=== PATIENT | male | born 1930 | race Caucasian/White ===

== ENCOUNTER 2017-03-04 09:13 | Emergency (ER) | payer OTHER ==
[2017-03-04 09:25] VITALS: BP 144/67; BMI 30.4
[2017-03-04] MEDS ORDERED: HYDROGEN PEROXIDE 3% ONE (09:29)
[2017-03-04] MEDS ORDERED: BENZOIN COMPOUND TINCTURE ONE (09:29)
--- NOTE | 2017-03-04 09:51 | DR.GENAD ---
HPI - PCP Primary Care Physician: PRERNA BARRAZA - HPI Comment HPI Comment: DENIES DEEP ELBOW PAIN. NO OTHER COMPLAINT. TETANUS 4 YEARS AGO AFTER HAND LACERATION. - Complaint/Symptoms Chief Complaint Doctors Comments: SKIN SKIN ON ELBOW DUE TO A FALL THIS AM. Chief Complaint:: PT C/O TRYING TO CATCH MY SON WHEN HE FELL AND I ENDED UP FALLING AND HE HAS A SKIN TEAR TO HIS LEFT ELBOW AREA SKIN ,, - Nurses notes reviewed Nurses Notes Review: Yes - Source History Provided: Patient - Mode of Arrival Mode of Arrival: Ambulatory - Timing Onset of Chief Complaint: 03/04/17 Came on: Suddenly - Duration Duration: Constant Duration: Days - Severity Severity: Moderate PMH - PMH Past Medical History: No Past Surgical History: Yes Surgical History: Ortho Surgery Past Surgical History Comment: BACK SURGERY . , DISC REMOVED AND HERNIA REPAIR . - Family History History of Family Medical Conditions: Yes Family Medical History: Diabetes Mellitus - Social History Does patient currently use any type of tobacco product: No Have you used tobacco products in the last 12 months: No Type of Tobacco Use: None Does any household member use tobacco: No Alcohol Use: None Do you use any recreational Drugs:: No Lives With: Family Lives Where: Home - infectious screening In the last 2 months have you had wt loss of >10#?: NO Have you had fever, night sweats or hemotysis?: No Have you traveled outside the country in the last 6 months?: No Isolation: Standard ROS - Review of Systems Constitutional: No Symptoms Reported Eyes: No Symptoms Reported ENTM: No Symptoms Reported Respiratoy: No Symptoms Reported Cardiovascular: No Symptoms Reported Gastrointestinal/Abdominal: No Symptoms Reported Genitourinary: No Symptoms Reported Neurological: No Symptoms Reported Musculoskeletal: Left, Elbow Integumentary: Change in Color, Wound (SKIN TEAR BACK LEFT ELBOW.) PE - Vital Signs Vitals: Temperature 96.1 F Pulse Rate 48 Respiratory Rate 20 Blood Pressure 144/67 O2 Sat by Pulse Oximetry 95 - General Limitations: No Limitations General Appearance: Alert - Head Head Exam: Normal Inspection - Eyes Eye exam: Normal Appearance - ENT ENT Exam: Normal External Ear Exam External Ear Exam: Normal External Inspection TM/Canal Exam: Left Erythema Nose Exam: Normal Nose Exam Mouth Exam: Normal Inspection Throat Exam: Normal Inspection - Neck Neck Exam: Trachea Midline - Chest Chest Inspection: Normal Inspection - Respiratory Respiratory Exam: Normal Lung Sounds Bilat Respiratory Exam: Bilateral Clear to Auscultation - Cardiovascular Cardiovascular Exam: Regular Rate, Normal Rhythm, Normal Heart Sounds - Abdominal Exam Abdominal Exam: Normal Bowel Sounds, Soft. negative: Tenderness - Extremities Extremities Exam: Normal Inspection - Back Back Exam: Normal Inspection - Neurologic Neurological Exam: Alert, Oriented X3 - Psychiatric Psychiatric Exam: Normal Affect, Normal Mood - Skin Skin Exam: Erythema, Other (SKIN TEAR LEFT ELBOW.) MDM - Differential Diagnosis Differential Diagnosis: SKIN TEAR LEFT ELBOW. CONTUSION LEFT ELBOW. Course - Treatment Treatment: SEE ORDERS. DRESSING APPLIED BY NURSE IN ED. - Education/Counseling Education/Counseling: Patient, Education Educated On: Diagnosis - Diagnosis Discharge Problem: Skin tear Contusion of left elbow Qualifiers: Encounter type: initial encounter Qualified Code(s): S50.02XA - Contusion of left elbow, initial encounter - Discharge Plan Disposition: 01 HOME, SELF-CARE Condition: Stable - Follow ups/Referrals Follow ups/Referrals: Fred Garcia [Primary Care Provider] - 3 days - Instructions Instructions: [facility], Adult, [id number] Additional Instructions: SKIN TEAR LEFT ELBOW. CONTUSION LEFT ELBOW. THESE ARE YOU DIAGNOSIS. RETURN TO ED IF WORSE.
== END 2017-03-04 10:02 | disposition home or self-care (01) ==
LOC: ER 09:32
PROC: 0XQCXZZ Repair Left Elbow Region, External Approach (ICD-10-PCS; principal; 2017-03-04)
DX: S51.012A Laceration without foreign body of left elbow, initial encounter (principal); S50.02XA Contusion of left elbow, initial encounter; W19.XXXA Unspecified fall, initial encounter; Y92.9 Unspecified place or not applicable
CPT/HCPCS: 12001; 99282

== ENCOUNTER 2017-12-09 09:39 | Observation (INO) ==
[2017-12-09 11:01] VITALS: BMI 29.0
[2017-12-09 11:03] LABS: BASOPHILS % (AUTO) 0.5 % (0.2-1.0); EOSINOPHILS # (AUTO) 0.2 x10^3/uL (0.0-0.2); EOSINOPHILS % (AUTO) 2.9 % (0.9-2.9); HEMATOCRIT 47.3 % (42.0-54.0); LYMPHOCYTES # (AUTO) 2.6 X10^3/uL (1.3-2.9); LYMPHOCYTES % (AUTO) 33.7 % (21.0-51.0); MEAN CORPUSCULAR HEMOGLOBIN 33.3 pg (27.0-34.0); MEAN CORPUSCULAR HGB CONC 33.7 g/dL (33.0-35.0); MEAN CORPUSCULAR VOLUME 98.8 fL (80.0-100.0); MEAN PLATELET VOLUME 7.8 fL (7.4-11.0); MONOCYTES # (AUTO) 0.8 x10^3/uL (0.3-0.8); MONOCYTES % (AUTO) 10.5 % (0.0-13.0); NEUTROPHILS # (AUTO) 4.1 x10^3/uL (2.2-4.8); NEUTROPHILS % (AUTO) 52.4 % (42.0-75.0); PLATELET COUNT 194 X10^3/uL (150.0-450.0); RED BLOOD COUNT 4.79 X10^6/uL (4.7-6.0); RED CELL DISTRIBUTION WIDTH 12.6 % (11.6-16.5); WHITE BLOOD COUNT 7.8 X10^3/uL (3.6-10.0)
[2017-12-09 11:18] LABS: BLOOD UREA NITROGEN 12 mg/dL (7-18); CALCIUM 8.8 mg/dL (8.5-10.1); CHLORIDE 106 mmol/L (98-107); CREATININE 1.11 mg/dL (0.70-1.30); SODIUM 142 mmol/L (136-145); TROPONIN I < 0.02 ng/mL (0-1.5); eGFR NON BLACK RACES > 60 (>60)
[2017-12-09 11:22] LABS: ALANINE AMINOTRANSFERASE 21 Units/L (12-78); ALKALINE PHOSPHATASE 123 Units/L (46-116); ASPARTATE AMINO TRANSFERASE 22 Units/L (15-37); CKMB % 2.8 % (<4); COR CA(FOR HYPOALB) 9.6 mg/dL (8.5-10.1); CREATINE KINASE 36 Units/L (39-308); CREATINE KINASE MB < 1.0 ng/mL (0-4.0); TOTAL PROTEIN 6.4 g/dL (6.4-8.2)
--- NOTE | 2017-12-09 11:32 | DR.UPDATE ---
H&P Update History and Physical Update: History and Physical reviewed and patient examined. Changes noted: Yes with the following: RETURNED TO THE OFFICE TODAY TO HAVE A NUCLEAR STRESS TEST AND ECHO. UPON WALKING INTO THE OFFICE, HE WAS NOTED WITH COMPLAINTS OF CHEST PAIN, SHORTNESS OF BREATH, AND DIZZINESS. CHEST PAIN IS DESCRIBED SQUEEZING AND RADIATES TO THE SHOULDERS AND LEFT ARM. HE WAS NOTED TO BE DIAPHORETIC AND PALE IN COLOR. HIS HEART RATE WAS NOTED TO BE IN THE 140s. HE REPORTS THAT SYMPTOMS STARTED APPROXIMATELY 20 MINUTES AGO. PATIENT WAS ADMITTED TO THE HOSPITAL FOR FURTHER EVALUATION AND TREATMENT. HE WAS PLACED ON THE CHEST PAIN PROTOCOL. WE WILL OBTAIN SERIAL CARDIAC ENZYMES, EKGS, WELL LABS AND AN ECHOCARDIOGRAM ON ADMISSION.
[2017-12-09] MEDS: LOVENOX INJ 30 MG SYR SC SCH (13:28)
[2017-12-09 14:31] LABS: CREATINE KINASE 49 Units/L (39-308); CREATINE KINASE MB < 1.0 ng/mL (0-4.0); TROPONIN I < 0.02 ng/mL (0-1.5)
[2017-12-09 18:52] LABS: CKMB % 3.2 % (<4); CREATINE KINASE 31 Units/L (39-308); CREATINE KINASE MB < 1.0 ng/mL (0-4.0); TROPONIN I < 0.02 ng/mL (0-1.5)
[2017-12-10] MEDS: MORPHINE SULFATE INJ 2 MG INJ IVP PRN ×3 (06:45→23:27)
[2017-12-10 06:52] LABS: ALANINE AMINOTRANSFERASE 19 Units/L (12-78); ALBUMIN 2.8 g/dL (3.4-5.0); ALKALINE PHOSPHATASE 122 Units/L (46-116); ASPARTATE AMINO TRANSFERASE 26 Units/L (15-37); BLOOD UREA NITROGEN 14 mg/dL (7-18); CALCIUM 8.5 mg/dL (8.5-10.1); CARBON DIOXIDE 27.2 mmol/L (21-32); CHLORIDE 106 mmol/L (98-107); CHOL/HDL RATIO 3.1 (0.0-5.0); CHOLESTEROL 151 mg/dL (0-200); COR CA(FOR HYPOALB) 9.5 mg/dL (8.5-10.1); CREATININE 0.93 mg/dL (0.70-1.30); HDL CHOLESTEROL 48 mg/dL (40-60); SODIUM 140 mmol/L (136-145); TOTAL PROTEIN 6.5 g/dL (6.4-8.2); TRIGLYCERIDES 84 mg/dL (0-150); eGFR NON BLACK RACES > 60 (>60)
[2017-12-10 06:59] LABS: BASOPHILS % (AUTO) 0.6 % (0.2-1.0); EOSINOPHILS # (AUTO) 0.2 x10^3/uL (0.0-0.2); EOSINOPHILS % (AUTO) 2.9 % (0.9-2.9); HEMATOCRIT 43.2 % (42.0-54.0); HEMOGLOBIN 14.8 g/dL (13.5-18.0); LYMPHOCYTES # (AUTO) 2.7 X10^3/uL (1.3-2.9); LYMPHOCYTES % (AUTO) 35.1 % (21.0-51.0); MEAN CORPUSCULAR HEMOGLOBIN 33.7 pg (27.0-34.0); MEAN CORPUSCULAR HGB CONC 34.3 g/dL (33.0-35.0); MEAN CORPUSCULAR VOLUME 98.1 fL (80.0-100.0); MEAN PLATELET VOLUME 7.5 fL (7.4-11.0); MONOCYTES # (AUTO) 0.8 x10^3/uL (0.3-0.8); MONOCYTES % (AUTO) 10.4 % (0.0-13.0); NEUTROPHILS # (AUTO) 3.9 x10^3/uL (2.2-4.8); PLATELET COUNT 168 X10^3/uL (150.0-450.0); RED BLOOD COUNT 4.41 X10^6/uL (4.7-6.0); RED CELL DISTRIBUTION WIDTH 12.8 % (11.6-16.5); WHITE BLOOD COUNT 7.6 X10^3/uL (3.6-10.0)
[2017-12-10] MEDS: LOVENOX INJ 30 MG SYR SC SCH (08:30)
[2017-12-10] MEDS: ASPIRIN PO SCH (08:30)
[2017-12-10] MEDS: NORVASC TAB 5 MG PO SCH (13:17)
[2017-12-11] MEDS: MORPHINE SULFATE INJ 2 MG INJ IVP PRN (05:46)
[2017-12-11 06:11] LABS: BASOPHILS % (AUTO) 0.5 % (0.2-1.0); EOSINOPHILS # (AUTO) 0.2 x10^3/uL (0.0-0.2); EOSINOPHILS % (AUTO) 2.6 % (0.9-2.9); HEMATOCRIT 45.9 % (42.0-54.0); HEMOGLOBIN 15.7 g/dL (13.5-18.0); LYMPHOCYTES # (AUTO) 2.4 X10^3/uL (1.3-2.9); LYMPHOCYTES % (AUTO) 32.4 % (21.0-51.0); MEAN CORPUSCULAR HEMOGLOBIN 33.7 pg (27.0-34.0); MEAN CORPUSCULAR HGB CONC 34.2 g/dL (33.0-35.0); MEAN CORPUSCULAR VOLUME 98.6 fL (80.0-100.0); MEAN PLATELET VOLUME 7.9 fL (7.4-11.0); MONOCYTES # (AUTO) 0.9 x10^3/uL (0.3-0.8); MONOCYTES % (AUTO) 11.7 % (0.0-13.0); NEUTROPHILS # (AUTO) 3.9 x10^3/uL (2.2-4.8); NEUTROPHILS % (AUTO) 52.8 % (42.0-75.0); PLATELET COUNT 178 X10^3/uL (150.0-450.0); RED BLOOD COUNT 4.66 X10^6/uL (4.7-6.0); RED CELL DISTRIBUTION WIDTH 12.6 % (11.6-16.5); WHITE BLOOD COUNT 7.3 X10^3/uL (3.6-10.0)
[2017-12-11 06:20] LABS: ALANINE AMINOTRANSFERASE 20 Units/L (12-78); ALBUMIN 2.7 g/dL (3.4-5.0); ALKALINE PHOSPHATASE 116 Units/L (46-116); ASPARTATE AMINO TRANSFERASE 21 Units/L (15-37); BLOOD UREA NITROGEN 10 mg/dL (7-18); CALCIUM 8.6 mg/dL (8.5-10.1); CHLORIDE 107 mmol/L (98-107); COR CA(FOR HYPOALB) 9.6 mg/dL (8.5-10.1); COR NA(FOR HYPERGLY) 143 mmol/L (136-145); CREATININE 0.86 mg/dL (0.70-1.30); SODIUM 143 mmol/L (136-145); TOTAL PROTEIN 6.1 g/dL (6.4-8.2); eGFR NON BLACK RACES > 60 (>60)
--- NOTE | 2017-12-11 07:37 | RAD ---
HISTORY: Chest pain, dizziness Study: Chest AP portable Comparison: 12/10/2017 Findings: The heart is within normal limits in size. The alfred are normal. The lung wilkins are clear. There is blunting of the left costophrenic angle suggestive of a small left pleural effusion. Bony thorax is unremarkable. IMPRESSION: No acute infiltrates Suspect small left pleural effusion Reported By:
[2017-12-11] MEDS ORDERED: COLACE CAP 100 MG PO SCH (09:00)
[2017-12-11] MEDS: LOVENOX INJ 30 MG SYR SC SCH (09:00)
[2017-12-11] MEDS: ASPIRIN PO SCH (09:00)
[2017-12-11] MEDS: NORVASC TAB 5 MG PO SCH (09:00)
[2017-12-11 10:34] VITALS: BP 133/62
[2017-12-11] MEDS ORDERED: MILK OF MAGNESIA PO SCH (21:00)
[2017-12-12] MEDS ORDERED: COLACE CAP 100 MG PO SCH (09:00)
--- NOTE | 2018-01-11 21:09 | PCM.PROG ---
Progress Note - Progress Note for Day of Date of Exam: 12/10/17 - Subjective Subjective: WAS ADMITTED FOR CHEST PAIN RULE OUT ACUTE DC. TODAY, HE IS ALERT AND ORIENTED, LYING IN BED ON MORNING ROUNDS. HE CONTINUES WITH SHORTNESS OF BREATH. HE REPORTS THAT CHEST PAIN COMES AND GOES. ON EXAMINATION, HEART IS REGULAR IN RATE AND RHYTHM. BILATERAL LUNGS ARE NOTED WITH DIMINISHED LUNG SOUNDS THROUGHOUT. ABDOMEN IS ROUND, SOFT, AND NON-TENDER WITH NORMAL BOWEL SOUNDS NOTED IN ALL QUADRANTS. HIS VITALS THIS MORNING ARE 97.9-51-25-96%NC-166/77. LABS WERE OBTAINED. ABNORMAL LAB VALUES INCLUDE THE FOLLOWING: RBC 4.41, ALK PHOS 122, ALBUMIN 2.8. A CHEST XRAY WAS OBTAINED TODAY AND REVEALED: MINIMAL BIBASILAR SUBSEGMENTAL ATELECTASIS, STABLE. TODAY, WE WILL START NORVASC 5MG PO DAILY. OTHERWISE, WE WILL CONTINUE WITH TELEMETRY, SUPPLEMENTAL OXYGEN, AND CONTINUE TO MONITOR. WE WILL FOLLOW UP WITH AM LABS AND CONTINUE TO MONITOR. PATIENT. - Past Medical Family Social History Past Med/Fam/Surg Hx: No changes since H&P Allergies: Allergies No Known Drug Allergies Allergy (Verified 12/09/17 10:05) - Review of Systems ROS: No change since H&P - Vital Signs and I&O's Vital Signs: Temperature 97.5 F Pulse Rate [Right Brachial] 54 Respiratory Rate 18 Blood Pressure [Right Arm] 133/62 Blood Pressure 144/67 O2 Sat by Pulse Oximetry 96 - Physical Exam Oriented: Normal Eyes: Normal Ear: Normal Nose: Normal Throat: Normal Respiratory: Generalized, Diminished Cardiovascular: Normal. negative: S3, S4, Murmur, Edema : Normal Auscultation: Bowel Sounds: Normal Palpation: Normal Tenderness: Normal Skin: Normal Musculoskeletal: Normal Psychiatric: Normal Mood Description: Calm Affect: Normal Speech Pattern: Clear, Appropriate - Laboratory and Diagnostics Result Diagrams: 12/11/17 05:24 12/11/17 05:24 Labs: Laboratory WBC 7.3 X10^3/uL (3.6-10.0) 12/11/17 05:24 RBC 4.66 X10^6/uL (4.7-6.0) L 12/11/17 05:24 Hgb 15.7 g/dL (13.5-18.0) 12/11/17 05:24 Hct 45.9 % (42.0-54.0) 12/11/17 05:24 MCV 98.6 fL (80.0-100.0) 12/11/17 05:24 MCH 33.7 pg (27.0-34.0) 12/11/17 05:24 MCHC 34.2 g/dL (33.0-35.0) 12/11/17 05:24 RDW 12.6 % (11.6-16.5) 12/11/17 05:24 Plt Count 178 X10^3/uL (150.0-450.0) 12/11/17 05:24 MPV 7.9 fL (7.4-11.0) 12/11/17 05:24 Neut % (Auto) 52.8 % (42.0-75.0) 12/11/17 05:24 Lymph % (Auto) 32.4 % (21.0-51.0) 12/11/17 05:24 Clay % (Auto) 11.7 % (0.0-13.0) 12/11/17 05:24 Eos % (Auto) 2.6 % (0.9-2.9) 12/11/17 05:24 Baso % (Auto) 0.5 % (0.2-1.0) 12/11/17 05:24 Neut # (Auto) 3.9 x10^3/uL (2.2-4.8) 12/11/17 05:24 Lymph # (Auto) 2.4 X10^3/uL (1.3-2.9) 12/11/17 05:24 Clay # (Auto) 0.9 x10^3/uL (0.3-0.8) H 12/11/17 05:24 Eos # (Auto) 0.2 x10^3/uL (0.0-0.2) 12/11/17 05:24 Baso # (Auto) 0.0 X10^3/uL (0.0-0.1) 12/11/17 05:24 Absolute Nucleated RBC 0.1 /100WBC 12/11/17 05:24 INR Target Range - 12/09/17 10:25 INR 1.06 (0.8-1.3) 12/09/17 10:25 APTT 28.2 SECONDS (22.9-36.5) 12/09/17 10:25 PTT Comment - 12/09/17 10:25 Sodium 143 mmol/L (136-145) 12/11/17 05:24 Corrected Sodium 143 mmol/L (136-145) 12/11/17 05:24 Potassium 4.1 mmol/L (3.5-5.1) 12/11/17 05:24 Chloride 107 mmol/L (98-107) 12/11/17 05:24 Carbon Dioxide 28.0 mmol/L (21-32) 12/11/17 05:24 BUN 10 mg/dL (7-18) 12/11/17 05:24 Creatinine 0.86 mg/dL (0.70-1.30) 12/11/17 05:24 Est GFR (MDRD) Af Amer > 60 (>60) 12/11/17 05:24 Est GFR (MDRD) Non-Af > 60 (>60) 12/11/17 05:24 Glucose 111 mg/dL (65-99) H 12/11/17 05:24 Calcium 8.6 mg/dL (8.5-10.1) 12/11/17 05:24 Corrected Calcium 9.6 mg/dL (8.5-10.1) 12/11/17 05:24 Magnesium 2.0 mg/dL (1.7-2.9) 12/09/17 10:25 Total Bilirubin 0.40 mg/dL (0.2-1.0) 12/11/17 05:24 AST 21 Units/L (15-37) 12/11/17 05:24 ALT 20 Units/L (12-78) 12/11/17 05:24 Alkaline Phosphatase 116 Units/L (46-116) 12/11/17 05:24 Creatine Kinase 31 Units/L (39-308) L 12/09/17 17:58 CK-MB (CK-2) < 1.0 ng/mL (0-4.0) 12/09/17 17:58 CK/CKMB % Calc 3.2 % (<4) 12/09/17 17:58 Troponin I < 0.02 ng/mL (0-1.5) 12/09/17 17:58 Total Protein 6.1 g/dL (6.4-8.2) L 12/11/17 05:24 Albumin 2.7 g/dL (3.4-5.0) L 12/11/17 05:24 Globulin 3.4 g/dL (2.5-4.5) 12/11/17 05:24 Albumin/Globulin Ratio 0.8 Ratio (1.1-2.1) L 12/11/17 05:24 Triglycerides 84 mg/dL (0-150) 12/10/17 05:20 Cholesterol 151 mg/dL (0-200) 12/10/17 05:20 LDL Cholesterol, Calc 86 mg/dL (0-100) 12/10/17 05:20 HDL Cholesterol 48 mg/dL (40-60) 12/10/17 05:20 Cholesterol/HDL Ratio 3.1 (0.0-5.0) 12/10/17 05:20 - Plan (1) Chest pain, rule out acute myocardial infarction Status: Acute
--- NOTE | 2018-01-19 22:33 | DR.CARTERD ---
- Discharge Summary for: Discharge Summary for Date of:: 12/11/17 - Admission Date Date of Admission: 12/09/17 - Admission Diagnoses Admission Diagnosis: (1) Chest pain, rule out acute myocardial infarction - Discharge Date Discharge Date: 12/11/17 - Discharge Diagnoses Discharge Diagnosis: (1) Chest pain, rule out acute myocardial infarction - Hospital Course Hospital Course: DAY ONE, RETURNED TO THE OFFICE TODAY TO HAVE A NUCLEAR STRESS TEST AND ECHO. UPON WALKING INTO THE OFFICE, HE WAS NOTED WITH COMPLAINTS OF CHEST PAIN, SHORTNESS OF BREATH, AND DIZZINESS. CHEST PAIN IS DESCRIBED SQUEEZING AND RADIATES TO THE SHOULDERS AND LEFT ARM. HE WAS NOTED TO BE DIAPHORETIC AND PALE IN COLOR. HIS HEART RATE WAS NOTED TO BE IN THE 140s. HE REPORTS THAT SYMPTOMS STARTED APPROXIMATELY 20 MINUTES AGO. PATIENT WAS ADMITTED TO THE HOSPITAL FOR FURTHER EVALUATION AND TREATMENT. HE WAS PLACED ON THE CHEST PAIN PROTOCOL. WE OBTAINED SERIAL CARDIAC ENZYMES, EKGS, WELL LABS AND AN ECHOCARDIOGRAM ON ADMISSION. DAY TWO, HE WAS ALERT AND ORIENTED, LYING IN BED ON MORNING ROUNDS. HE CONTINUED WITH SHORTNESS OF BREATH. HE REPORTED THAT HIS CHEST PAIN COMES AND GOES. ON EXAMINATION, HEART WAS REGULAR IN RATE AND RHYTHM. BILATERAL LUNGS WERE NOTED WITH DIMINISHED LUNG SOUNDS THROUGHOUT. ABDOMEN WAS ROUND, SOFT, AND NON-TENDER WITH NORMAL BOWEL SOUNDS NOTED IN ALL QUADRANTS. HIS VITALS THIS MORNING WERE 97.9-51-25-96%NC-166/77. LABS WERE OBTAINED. ABNORMAL LAB VALUES INCLUDED THE FOLLOWING: RBC 4.41, ALK PHOS 122, ALBUMIN 2.8. A CHEST XRAY WAS OBTAINED TODAY AND REVEALED: MINIMAL BIBASILAR SUBSEGMENTAL ATELECTASIS, STABLE. WE STARTED NORVASC 5MG PO DAILY. WE CONTINUED WITH TELEMETRY, SUPPLEMENTAL OXYGEN, AND CONTINUED TO MONITOR. WE FOLLOWED UP WITH AM LABS AND CONTINUED TO MONITOR PATIENT. DAY THREE, PATIENT WAS SITTING UP IN BED ALERT AND ORIENTED DURING ROUNDS. PATIENT'S WERE IMPROVED. PATIENT VOICES NO COMPLAINTS THIS AM. LABS WERE WITHIN NORMAL RANGE FOR PATIENT. SERIAL CARDIAC ENZYMES WERE NORMAL. VITAL SIGNS WERE STABLE. WE PLANNED FOR DISCHARGE. INSTRUCTIONS FOR MEDICATIONS AND FOLLOW UP WERE DISCUSSED WITH PATIENT AND FAMILY, BOTH VOICED UNDERSTANDING. PATIENT DISCHARGED HOME IN STABLE CONDITION WITH FAMILY. - Discharge Medications Discharge Medications: Home Medication List cetirizine 20 mg PO QHS 12/09/17 [History] dutasteride 0.5 mg PO DAILY 12/09/17 [History] levocetirizine 5 mg PO DAILY 12/09/17 [History] metoprolol tartrate 25 mg PO BID 12/09/17 [History] montelukast 10 mg PO DAILY 12/09/17 [History] omeprazole 40 mg PO DAILY 12/09/17 [History] tamsulosin 0.4 mg PO QHS 12/09/17 [History] tramadol 50 mg PO QID PRN 12/09/17 [History] amlodipine [Norvasc] 5 mg PO DAILY #30 tab 12/11/17 [Rx] Prescriptions: amlodipine [Norvasc] Fred Garcia Ambulatory Orders Simvastatin [Zocor] 20 mg PO HS 08/08/11 escitalopram oxalate 10 mg PO DAILY 08/08/11 - Discharge Disposition Discharge Disposition: PATIENT TO FOLLOW UP IN OUR OFFICE IN ONE WEEK.
== END 2017-12-11 12:20 | disposition home or self-care (01) ==
LOC: ICU
PROVIDERS: ADMIT Internal Medicine; ATTEND Internal Medicine
DX: R61 Generalized hyperhidrosis; R94.31 Abnormal electrocardiogram [ECG] [EKG]; R42 Dizziness and giddiness; R07.89 Other chest pain; D51.0 Vitamin B12 deficiency anemia due to intrinsic factor deficiency; I10 Essential (primary) hypertension; Z79.899 Other long term (current) drug therapy; R00.0 Tachycardia, unspecified; R26.89 Other abnormalities of gait and mobility; G31.84 Mild cognitive impairment of uncertain or unknown etiology; R06.02 Shortness of breath; E78.2 Mixed hyperlipidemia; R74.8 Abnormal levels of other serum enzymes
CPT/HCPCS: 36415; 71010; 71045; 80053; 80061; 82550; 82553; 83735; 84484; 85025; 85610; 85730; 93005; 96367; 96372; 96374; 97162; A4222; G0378; J1650; J2270

== ENCOUNTER 2019-07-08 06:00 | Observation (INO) ==
[2019-07-08] MEDS ORDERED: APRESOLINE INJ 20 MG VIAL IVP ONE (06:28)
[2019-07-08] MEDS ORDERED: ASPIRIN 81 MG CHEWTAB PO ONE (06:29)
[2019-07-08 06:35] VITALS: BMI 28.2
--- NOTE | 2019-07-08 06:36 | DR.CP ---
HPI <THIAGO GLOVER - Last Filed: 07/08/19 07:48> Time Seen Time Seen by Provider: 07/08/19 06:15 Complaint Chief Complaint Doctor Comments: A 88 y/o male presenting with c/o chest pain. He states that it's been going on for a few weeks. He is a poor historian and despite having his son who is present with him not much could be gotten in terms of the hx. As of this time he states that the chest pain has resolved and now he is hurting in his neck and Lt. shoulder. He denies dyspnea, nausea vomiting, diaphoresis or palpitation. COVID-19 Coronavirus risk:travel/contact w/high risk person: No Has patient experienced Coronavirus symptoms: No Reviewed Nurses Notes Review: Yes Source History Provided: Patient and Family Member Mode of Arrival Mode of Arrival: In Arms Timing Came on: Gradually Pain: Resolved Location Location of Chest Pain: Chest Chest Pain Radiation Location: None Context Onset: At rest Cardiac Risk Factors: HTN PE Risk Factors: None History of: Similar pain in the past Prehospital Care: None Modifying Factors Worsens: Nothing Impoves: Nothing Associated Signs and Symptoms Associated Signs and Symptoms: None <Avis Lomeli - Last Filed: 07/08/19 09:49> COVID-19 Coronavirus risk:travel/contact w/high risk person: No Has patient experienced Coronavirus symptoms: No Reviewed Nurses Notes Review: Yes Source History Provided: Guardian and Other PMH <THIAGO GLOVER - Last Filed: 07/08/19 07:48> PMH Past Medical History: Arthritis, Coronary Artery Disease and Hypertension Past Surgical History: Yes Surgical History: Ortho Surgery, Tonsillectomy and Other Family History Family Medical History: Diabetes Mellitus, [place], Heart Failure and Hypertension Social History Do you use any recreational Drugs:: No ROS <THIAGO GLOVER - Last Filed: 07/08/19 07:48> Review of Systems Constitutional: No Symptoms Reported Eyes: No Symptoms Reported ENTM: No Symptoms Reported Respiratoy: No Symptoms Reported Cardiovascular: See HPI and Chest Pain Gastrointestinal/Abdominal: No Symptoms Reported Genitourinary: No Symptoms Reported Neurological: No Symptoms Reported Musculoskeletal: No Symptoms Reported Integumentary: No Symptoms Reported Hematologic/Lymphatic: No Symptoms Reported Endocrine: No Symptoms Reported Psychiatric: No Symptoms Reported <Avis Lomeli - Last Filed: 07/08/19 09:49> Review of Systems Constitutional: No Symptoms Reported Eyes: No Symptoms Reported ENTM: No Symptoms Reported Respiratoy: No Symptoms Reported Cardiovascular: No Symptoms Reported Gastrointestinal/Abdominal: No Symptoms Reported Genitourinary: No Symptoms Reported Neurological: No Symptoms Reported Musculoskeletal: No Symptoms Reported Integumentary: No Symptoms Reported Hematologic/Lymphatic: No Symptoms Reported Endocrine: No Symptoms Reported Psychiatric: No Symptoms Reported All Other Systems: Reviewed and Negative PE <THIAGO GLOVER - Last Filed: 07/08/19 07:48> Vitals Vitals: Temperature 98.2 F Pulse Rate 48 Respiratory Rate 29 Blood Pressure [Left Arm] 168/78 Blood Pressure [Right Arm] 163/72 Blood Pressure 190/93 O2 Sat by Pulse Oximetry 97 General Limitations: No Limitations General Appearance: Alert and In No Apparent Distress Head Head Exam: Normal Inspection, Atraumatic and Normocephalic Eyes Eye exam: Normal Appearance and EOMI ENT ENT Exam: Normal Exam, Normal Oropharynx, Normal External Ear Exam and Mucous Membranes Moist Chest Chest Inspection: Normal Inspection and Symmetric Chest Wall Rise Respiratory Respiratory Exam: Normal Lung Sounds Bilat Cardiovascular Cardiovascular Exam: Regular Rate, Normal Rhythm, Normal Heart Sounds, +S1 and +S2 Edema: Normal Abdominal Exam Abdominal Exam: Normal Inspection, Normal Bowel Sounds and Soft Extremities Extremities Exam: Normal Inspection, Full ROM and Normal Capillary Refill; negative Tenderness, Edema, Joint Swelling and Calf Tenderness Back Back Exam: Normal Inspection and Full ROM Neurologic Neurological Exam: Alert and Oriented X3 Psychiatric Psychiatric Exam: Normal Affect and Normal Mood Skin Skin Exam: Dry and Normal Color <Avis Lomeli - Last Filed: 07/08/19 09:49> Vitals Vitals: Temperature 98.2 F Pulse Rate 48 Respiratory Rate 29 Blood Pressure [Left Arm] 168/78 Blood Pressure [Right Arm] 163/72 Blood Pressure 190/93 O2 Sat by Pulse Oximetry 97 General Limitations: No Limitations General Appearance: Alert and In No Apparent Distress Head Head Exam: Normal Inspection Eyes Eye exam: Normal Appearance ENT ENT Exam: Normal Exam Chest Chest Inspection: Normal Inspection Respiratory Respiratory Exam: Normal Lung Sounds Bilat Cardiovascular Cardiovascular Exam: Regular Rate and Normal Rhythm Pulse: Normal Edema: Normal Abdominal Exam Abdominal Exam: Normal Inspection, Normal Bowel Sounds and Soft Extremities Extremities Exam: Normal Inspection Back Back Exam: Normal Inspection Neurologic Neurological Exam: Alert and Oriented X3 Psychiatric Psychiatric Exam: Normal Affect and Normal Mood Skin Skin Exam: Warm, Dry, Intact and Normal Color COURSE <THIAGO GLOVER - Last Filed: 07/08/19 07:48> Reevaluation 1st: Improved Education/Counseling Education/Counseling: Patient, Family, Education and Counseling Educated On: Treatment, Diagnosis, Prognosis and Needs for Follow Up <Avis Lomeli - Last Filed: 07/08/19 09:49> Treatment Treatment: The nurse contacted Dr. Garcia on my behalf, he stated to her that he is aware of this patient and agrees to admission. ROR <THIAGO GLOVER - Last Filed: 07/08/19 07:48> Labs Reviewed Laboratory Results Reviewed?: Yes Result Diagrams: 07/08/19 07:25 07/08/19 07:25 Laboratory: WBC 7.1 X10^3/uL (3.6-10.0) 07/08/19 07:25 RBC 4.53 X10^6/uL (4.7-6.0) L 07/08/19 07:25 Hgb 14.9 g/dL (13.5-18.0) 07/08/19 07:25 Hct 44.0 % (42.0-54.0) 07/08/19 07:25 MCV 97.1 fL (80.0-100.0) 07/08/19 07:25 MCH 32.8 pg (27.0-34.0) 07/08/19 07:25 MCHC 33.8 g/dL (33.0-35.0) 07/08/19 07:25 RDW 12.3 % (11.6-16.5) 07/08/19 07:25 Plt Count 203 X10^3/uL (150.0-450.0) 07/08/19 07:25 MPV 8.3 fL (7.4-11.0) 07/08/19 07:25 Neut % (Auto) 44.6 % (42.0-75.0) 07/08/19 07:25 Lymph % (Auto) 38.7 % (21.0-51.0) 07/08/19 07:25 Cecil % (Auto) 11.0 % (0.0-13.0) 07/08/19 07:25 Eos % (Auto) 5.1 % (0.9-2.9) H 07/08/19 07:25 Baso % (Auto) 0.6 % (0.2-1.0) 07/08/19 07:25 Neut # (Auto) 3.2 x10^3/uL (2.2-4.8) 07/08/19 07:25 Lymph # (Auto) 2.7 X10^3/uL (1.3-2.9) 07/08/19 07:25 Cecil # (Auto) 0.8 x10^3/uL (0.3-0.8) 07/08/19 07:25 Eos # (Auto) 0.4 x10^3/uL (0.0-0.2) H 07/08/19 07:25 Baso # (Auto) 0.0 X10^3/uL (0.0-0.1) 07/08/19 07:25 Absolute Nucleated RBC 0.0 /100WBC 07/08/19 07:25 PT 13.9 SECONDS (11.8-14.3) 07/08/19 07:25 INR Target Range - 07/08/19 07:25 INR 1.10 (0.8-1.3) 07/08/19 07:25 Sodium 139 mmol/L (136-145) 07/08/19 07:25 Corrected Sodium TNP 07/08/19 07:25 Potassium 4.2 mmol/L (3.5-5.1) 07/08/19 07:25 Chloride 104 mmol/L (98-107) 07/08/19 07:25 Carbon Dioxide 32.9 mmol/L (21-32) H 07/08/19 07:25 BUN 13 mg/dL (7-18) 07/08/19 07:25 Creatinine 1.12 mg/dL (0.70-1.30) 07/08/19 07:25 Est GFR (MDRD) Af Amer > 60 (>60) 07/08/19 07:25 Est GFR (MDRD) Non-Af > 60 (>60) 07/08/19 07:25 Glucose 96 mg/dL (65-99) 07/08/19 07:25 Calcium 8.8 mg/dL (8.5-10.1) 07/08/19 07:25 Corrected Calcium 9.6 mg/dL (8.5-10.1) 07/08/19 07:25 Magnesium 2.0 mg/dL (1.7-2.9) 07/08/19 07:25 Total Bilirubin 0.40 mg/dL (0.2-1.0) 07/08/19 07:25 AST 15 Units/L (15-37) 07/08/19 07:25 ALT 16 Units/L (12-78) 07/08/19 07:25 Alkaline Phosphatase 112 Units/L (46-116) 07/08/19 07:25 Creatine Kinase 51 Units/L (39-308) 07/08/19 07:25 CK-MB (CK-2) < 1.0 ng/mL (0-4.0) 07/08/19 07:25 CK/CKMB % Calc 2.0 % (<4) 07/08/19 07:25 Troponin I < 0.02 ng/mL (0-1.5) 07/08/19 07:25 Total Protein 6.3 g/dL (6.4-8.2) L 07/08/19 07:25 Albumin 3.0 g/dL (3.4-5.0) L 07/08/19 07:25 Globulin 3.3 g/dL (2.5-4.5) 07/08/19 07:25 Albumin/Globulin Ratio 0.9 Ratio (1.1-2.1) L 07/08/19 07:25 EKG Rate: 49 [place]: Normal Rhythm: SB Block: LBBB Hypertrophy: None ST: Normal <Avis Lomeli - Last Filed: 07/08/19 09:49> Labs Reviewed Laboratory Results Reviewed?: Yes Laboratory: WBC 7.1 X10^3/uL (3.6-10.0) 07/08/19 07:25 RBC 4.53 X10^6/uL (4.7-6.0) L 07/08/19 07:25 Hgb 14.9 g/dL (13.5-18.0) 07/08/19 07:25 Hct 44.0 % (42.0-54.0) 07/08/19 07:25 MCV 97.1 fL (80.0-100.0) 07/08/19 07:25 MCH 32.8 pg (27.0-34.0) 07/08/19 07:25 MCHC 33.8 g/dL (33.0-35.0) 07/08/19 07:25 RDW 12.3 % (11.6-16.5) 07/08/19 07:25 Plt Count 203 X10^3/uL (150.0-450.0) 07/08/19 07:25 MPV 8.3 fL (7.4-11.0) 07/08/19 07:25 Neut % (Auto) 44.6 % (42.0-75.0) 07/08/19 07:25 Lymph % (Auto) 38.7 % (21.0-51.0) 07/08/19 07:25 Cecil % (Auto) 11.0 % (0.0-13.0) 07/08/19 07:25 Eos % (Auto) 5.1 % (0.9-2.9) H 07/08/19 07:25 Baso % (Auto) 0.6 % (0.2-1.0) 07/08/19 07:25 Neut # (Auto) 3.2 x10^3/uL (2.2-4.8) 07/08/19 07:25 Lymph # (Auto) 2.7 X10^3/uL (1.3-2.9) 07/08/19 07:25 Cecil # (Auto) 0.8 x10^3/uL (0.3-0.8) 07/08/19 07:25 Eos # (Auto) 0.4 x10^3/uL (0.0-0.2) H 07/08/19 07:25 Baso # (Auto) 0.0 X10^3/uL (0.0-0.1) 07/08/19 07:25 Absolute Nucleated RBC 0.0 /100WBC 07/08/19 07:25 PT 13.9 SECONDS (11.8-14.3) 07/08/19 07:25 INR Target Range - 07/08/19 07:25 INR 1.10 (0.8-1.3) 07/08/19 07:25 Sodium 139 mmol/L (136-145) 07/08/19 07:25 Corrected Sodium TNP 07/08/19 07:25 Potassium 4.2 mmol/L (3.5-5.1) 07/08/19 07:25 Chloride 104 mmol/L (98-107) 07/08/19 07:25 Carbon Dioxide 32.9 mmol/L (21-32) H 07/08/19 07:25 BUN 13 mg/dL (7-18) 07/08/19 07:25 Creatinine 1.12 mg/dL (0.70-1.30) 07/08/19 07:25 Est GFR (MDRD) Af Amer > 60 (>60) 07/08/19 07:25 Est GFR (MDRD) Non-Af > 60 (>60) 07/08/19 07:25 Glucose 96 mg/dL (65-99) 07/08/19 07:25 Calcium 8.8 mg/dL (8.5-10.1) 07/08/19 07:25 Corrected Calcium 9.6 mg/dL (8.5-10.1) 07/08/19 07:25 Magnesium 2.0 mg/dL (1.7-2.9) 07/08/19 07:25 Total Bilirubin 0.40 mg/dL (0.2-1.0) 07/08/19 07:25 AST 15 Units/L (15-37) 07/08/19 07:25 ALT 16 Units/L (12-78) 07/08/19 07:25 Alkaline Phosphatase 112 Units/L (46-116) 07/08/19 07:25 Creatine Kinase 51 Units/L (39-308) 07/08/19 07:25 CK-MB (CK-2) < 1.0 ng/mL (0-4.0) 07/08/19 07:25 CK/CKMB % Calc 2.0 % (<4) 07/08/19 07:25 Troponin I < 0.02 ng/mL (0-1.5) 07/08/19 07:25 Total Protein 6.3 g/dL (6.4-8.2) L 07/08/19 07:25 Albumin 3.0 g/dL (3.4-5.0) L 07/08/19 07:25 Globulin 3.3 g/dL (2.5-4.5) 07/08/19 07:25 Albumin/Globulin Ratio 0.9 Ratio (1.1-2.1) L 07/08/19 07:25 EKG [place]: Normal Rhythm: NSR Block: None Hypertrophy: None ST: Normal Opioid <ADEWUNMI SOBOWALE - Last Filed: 07/08/19 07:48> Opioid Risk Tool Total: 0 Total Score Risk Category: Low Risk Copyright: Luther GORDON predicting aberrant behaviors <Tiffanieshaylee Tilalin - Last Filed: 07/08/19 09:49> Opioid Risk Tool Total: 0 Total Score Risk Category: Low Risk <ADEWUNMI SOBOWALE - Last Filed: 07/08/19 07:48> Diagnosis Discharge Problem: Chest pain, rule out acute myocardial infarction ADDITIONAL NOTES <ADEWUNMI SOBOWALE - Last Filed: 07/08/19 07:48> Additional Notes Additional Notes: Name: SOMMERJANUARY : 1930 Sex: M Location: ER Order Number(s): [id number] Procedure(s):CHEST, 1 VIEW Ordering Physician: THIAGO GLOVER Primary Care: Fred Garcia Service Date: 07/08/19 Service Time: 623 HISTORY Chest pain STUDY CHEST, 1 VIEW COMPARISON 04/20/2018 FINDINGS The heart is within normal limits in size. The alfred are normal. The lungs are well inflated. There is subsegmental atelectasis in the right lung base. There is a benign calcified granuloma in the right lower lobe. The remainder of the lung wilkins are clear. No pleural effusions are identified. Bony thorax is unremarkable. IMPRESSION No acute infiltrates Subsegmental atelectasis right lung base Old granulomatous disease Electronically signed by: TIERRA WADE (July 08, 2019 06:44:05) Name: JANUARY SOMMER : 1930 Sex: M Location: ER Order Number(s): [id number] Procedure(s):SHOULDER, LEFT Ordering Physician: THIAGO GLOVER Primary Care: Fred Garcia Service Date: 07/08/19 Service Time: 627 HISTORY Nontraumatic left shoulder pain STUDY SHOULDER, LEFT three views COMPARISON None FINDINGS The clavicle, AC joint, scapula, glenohumeral joint, proximal humerus and left upper ribs appear intact. IMPRESSION No significant abnormality identified Electronically signed by: TIERRA WADE (July 08, 2019 06:58:03)
--- NOTE | 2019-07-08 06:44 | RAD ---
HISTORYChest painSTUDYCHEST, 1 [id number]/11/2019FINDINGSThe heart is within normal limits in size. The alfred are normal. The lungs are well inflated. There is subsegmental atelectasis in the right lung base. There is a benign calcified granuloma in the right lower lobe. The remainder of the lung wilkins are clear. No pleural effusions are identified. Bony thorax is unremarkable.IMPRESSIONNo acute infiltratesSubsegmental atelectasis right lung baseOld granulomatous diseaseElectronically signed by: TIERRA WADE (July 08, 2019 06:44:05)
[2019-07-08] MEDS ORDERED: ASPIRIN 81 MG CHEWTAB ONE (06:48)
[2019-07-08 06:59] LABS: BASOPHILS % (AUTO) 0.6 % (0.2-1.0); EOSINOPHILS # (AUTO) 0.4 x10^3/uL (0.0-0.2); EOSINOPHILS % (AUTO) 5.1 % (0.9-2.9); HEMOGLOBIN 14.9 g/dL (13.5-18.0); LYMPHOCYTES # (AUTO) 2.7 X10^3/uL (1.3-2.9); LYMPHOCYTES % (AUTO) 38.7 % (21.0-51.0); MEAN CORPUSCULAR HEMOGLOBIN 32.8 pg (27.0-34.0); MEAN CORPUSCULAR HGB CONC 33.8 g/dL (33.0-35.0); MEAN CORPUSCULAR VOLUME 97.1 fL (80.0-100.0); MEAN PLATELET VOLUME 8.3 fL (7.4-11.0); MONOCYTES # (AUTO) 0.8 x10^3/uL (0.3-0.8); NEUTROPHILS # (AUTO) 3.2 x10^3/uL (2.2-4.8); NEUTROPHILS % (AUTO) 44.6 % (42.0-75.0); PLATELET COUNT 203 X10^3/uL (150.0-450.0); RED BLOOD COUNT 4.53 X10^6/uL (4.7-6.0); RED CELL DISTRIBUTION WIDTH 12.3 % (11.6-16.5); WHITE BLOOD COUNT 7.1 X10^3/uL (3.6-10.0)
[2019-07-08] MEDS ORDERED: NITROSTAT ONE (07:00)
--- NOTE | 2019-07-08 07:00 | RAD ---
HISTORYNontraumatic left shoulder painSTUDYSHOULDER, LEFT three viewsCOMPARISONNoneFINDINGSThe clavicle, AC joint, scapula, glenohumeral joint, proximal humerus and left upper ribs appear intact.IMPRESSIONNo significant abnormality identifiedElectronically signed by: TIERRA WADE (July 08, 2019 06:58:03)
[2019-07-08] MEDS ORDERED: NITROSTAT SL PRN (07:02)
[2019-07-08 07:48] LABS: ALANINE AMINOTRANSFERASE 16 Units/L (12-78); ALKALINE PHOSPHATASE 112 Units/L (46-116); ASPARTATE AMINO TRANSFERASE 15 Units/L (15-37); BLOOD UREA NITROGEN 13 mg/dL (7-18); CALCIUM 8.8 mg/dL (8.5-10.1); CARBON DIOXIDE 32.9 mmol/L (21-32); CHLORIDE 104 mmol/L (98-107); COR CA(FOR HYPOALB) 9.6 mg/dL (8.5-10.1); CREATINE KINASE 51 Units/L (39-308); CREATININE 1.12 mg/dL (0.70-1.30); SODIUM 139 mmol/L (136-145); TOTAL PROTEIN 6.3 g/dL (6.4-8.2); eGFR NON BLACK RACES > 60 (>60)
[2019-07-08 08:08] LABS: CREATINE KINASE MB < 1.0 ng/mL (0-4.0); TROPONIN I < 0.02 ng/mL (0-1.5)
[2019-07-08] MEDS ORDERED: PATIENT'S HOME MEDICATION (Mirabegron [Myrbetriq] 25 MG) PO SCH (09:45)
[2019-07-08] MEDS ORDERED: SINGULAIR TAB 10 MG PO SCH (10:00)
[2019-07-08] MEDS: NORVASC TAB 5 MG PO SCH (10:44)
[2019-07-08] MEDS: ASPIRIN 81 MG CHEWTAB PO SCH (10:44)
[2019-07-08] MEDS ORDERED: APRESOLINE INJ 20 MG VIAL IVP PRN (11:02)
[2019-07-08 12:00] LABS: CKMB % 1.9 % (<4); CREATINE KINASE 52 Units/L (39-308); CREATINE KINASE MB < 1.0 ng/mL (0-4.0); TROPONIN I < 0.02 ng/mL (0-1.5)
[2019-07-08 17:49] LABS: CKMB % 2.1 % (<4); CREATINE KINASE 48 Units/L (39-308); CREATINE KINASE MB < 1.0 ng/mL (0-4.0); TROPONIN I < 0.02 ng/mL (0-1.5)
[2019-07-08] MEDS ORDERED: LEXAPRO ONE (20:15)
--- NOTE | 2019-07-08 20:33 | DR.H&P ---
H&P - History & Physical for Day of: H&P Date: 07/08/19 - Chief Complaint Chief Complaint: CHEST PAIN, LEFT SHOULDER PAIN, NECK PAIN - History of Present Illness History of Present Illness: IS A 88 YEAR OLD PATIENT OF OURS. HE PRESENTED TO THE ER WITH COMPLAINTS OF CHEST PAIN THAT STARTED APPROXIMATELY TWO WEEKS PRIOR. CHEST PAIN AT THE PRESENT TIME IS RATED 2/10, BUT HE ALSO REPORTS LEFT SHOULDER AND LEFT SIDE NECK PAIN, WHICH HE RATES 5/10. PATIENT REPORTS USING NITROGLYCERINE PASTE AT HOME. HE REPORTS THAT PASTE EASES PAIN BRIEFLY, BUT THEN IT RETURNS. HE DENIES DYSPNEA, NAUSEA, VOMITING, DIAPHORESIS, OR PALPITATIONS. PMH INCLUDES HTN, GERD, OVERACTIVE BLADDER, BPH, DEPRESSION, AND HYPERLIPIDEMIA. ON ARRIVAL TO THE ER, VITALS WERE 98.2-52-24-96%-203/87. LABS WERE OBTAINED. ABNORMAL LAB VALUES INCLUDE THE FOLLOWING: RBC 4.53, CARBON DIOXIDE 32.9, TOTAL PROTEIN 6.3, ALBUMIN 3.0. CARDIAC ENZYMES WERE WITHIN NORMAL LIMITS. A CHEST XRAY WAS OBTAINED AND REVEALED: No acute infiltrates. Subsegmental atelectasis right lung base. A SHOULDER XRAY WAS OBTAINED AND REVEALED: No significant abnormality identified. AN EKG WAS OBTAINED AND REVEALED: SINUS BRADYCARDIA WITH HR 49. A CAROTID DOPPLER WAS OBTAINED ON 04/19/19 AND REVEALED: Mild atherosclerosis and scattered atherosclerotic plaque formation of the bilateral carotid bulbs and in both ICAs with moderate associated carotid intimal thickening but without evidence for high-grade stenosis or occlusion of the carotid arteries, based on Doppler velocity criteria. Appropriate, antegrade, vertebral arterial flow. AN ECHO WAS ALSO OBTAINED ON 04/12/19 AND REVEALED AN AJECTION FRACTION OF 58% AND MILD TO MODERATE PULMONARY HYPERTENSION. HE WAS GIVEN ASPIRIN 81MG PO X 1 AND APRESOLINE 10MG IV X 1 IN THE ER. BLOOD PRESSURE DECREASED TO 142/68. HE WAS ADMITTED FOR FURTHER EVALUATION AND TREATMENT OF CHEST PAIN, RULE OUT ACUTE NV. HE WAS STARTED ON NITROSTAT 0.4MG SL Q5M PRN, NORVASC 5MG PO DAILY, ASPIRIN 81MG PO DAILY, LEXAPRO 10MG PO HS, HYDRALAZINE 10MG IV Q6H PRN HTN, AND SIMVASTATIN 20MG PO HS. WE WILL OBTAIN SERIAL CARDIAC ENZYMES AND EKGs. OTHERWISE, WE PLAN TO FOLLOW UP WITH AM LABS AND CONTINUE TO MONITOR. - Past Medical History Past Medical History: Arthritis, Coronary Artery Disease, Depression, Dyslipidemia, GERD, Hypertension Additional Medical History: BPH, OVERACTIVE BLADDER - Past Surgical History Surgical History: Ortho Surgery, Other, Tonsillectomy - Family History Family Medical History: Diabetes Mellitus, [place], Heart Failure, Hypertension - Social History Does patient currently use any type of tobacco product: No Have you used tobacco products in the last 12 months: No Does any household member use tobacco: No Alcohol Use: None Drug Use: None - Medications Home Medications: No Known Drug Allergies Allergy (Verified 08/20/18 09:04) CONTINUE taking the following medications aspirin 81 mg PO ONCE 07/08/19 [History] fluticasone propionate [Flonase Allergy Relief] 50 mcg INTRANASAL BID 07/08/19 [History] mirabegron [Myrbetriq] 25 mg PO Q24H 07/08/19 [History] - Review of Systems Constitutional: Weakness Eyes: No Symptoms Reported ENT: No Symptoms Reported Respiratory: No Symptoms Reported Cardiovascular: Chest Pain Gastrointestinal: No Symptoms Reported Genitourinary: No Symptoms Reported Musculoskeletal: See HPI, Shoulder Pain, Neck Pain Skin: No Symptoms Reported Neurological: Weakness - Physical Exam Vital Signs: Temperature 98.3 F Pulse Rate [Left Brachial] 50 Pulse Rate 54 Respiratory Rate 18 Blood Pressure [Left Arm] 149/69 Blood Pressure [Right Arm] 163/72 Blood Pressure 169/99 O2 Sat by Pulse Oximetry 96 Oriented: Normal Eyes: Normal Ear: Normal Nose: Normal Throat: Normal Respiratory: Diminished Throughout Cardiovascular: Bradycardia : Normal Auscultation: Bowel Sounds: Normal Palpation: Normal Tenderness: Normal Skin: Normal Musculoskeletal: Left, Shoulder, Tender Psychiatric: Normal Mood Description: Calm Affect: Normal Speech Pattern: Clear - Assessment/Plan (1) Chest pain, rule out acute myocardial infarction Status: Acute Plan: ADMIT, SERIAL CARDIAC ENZYMES AND EKGS, TELEMETRY, SUPPLEMENTAL OXYGEN, NITROSTAT 0.4MG SL Q5M PRN, NORVASC 5MG PO DAILY, ASPIRIN 81MG PO DAILY, LEXAPRO 10MG PO HS, HYDRALAZINE 10MG IV Q6H PRN HTN, AND SIMVASTATIN 20MG PO HS (2) Bradycardia Status: Acute (3) Hypertension Qualifiers: Hypertension type: essential hypertension Qualified Code(s): I10 - Essential (primary) hypertension Status: Chronic (4) Hyperlipidemia Qualifiers: Hyperlipidemia type: mixed hyperlipidemia Qualified Code(s): E78.2 - Mixed hyperlipidemia Status: Chronic (5) GERD (gastroesophageal reflux disease) Qualifiers: Esophagitis presence: esophagitis presence not specified Qualified Code(s): K21.9 - Gastro-esophageal reflux disease without esophagitis Status: Chronic (6) Depression Qualifiers: Depression Type: unspecified Qualified Code(s): F32.9 - Major depressive disorder, single episode, unspecified Status: Chronic (7) BPH (benign prostatic hyperplasia) Qualifiers: Lower urinary tract symptom presence: unspecified whether lower urinary tract symptoms present Qualified Code(s): N40.0 - Benign prostatic hyperplasia without lower urinary tract symptoms Status: Chronic - Review H&P Reviewed: Yes Patient was examined?: Yes - Allergies Allergies/Adverse Reactions: Allergies Allergy/AdvReac Type Severity Reaction Status Date / Time No Known Drug Allergies Allergy Verified 08/20/18 09:04
[2019-07-08] MEDS ORDERED: LEXAPRO PO SCH (21:00)
[2019-07-08] MEDS ORDERED: ZOCOR TAB 20 MG PO SCH (21:00)
[2019-07-08] MEDS ORDERED: ULTRAM PO PRN (22:49)
[2019-07-09 00:01] LABS: CKMB % 2.2 % (<4); CREATINE KINASE 45 Units/L (39-308); CREATINE KINASE MB < 1.0 ng/mL (0-4.0); TROPONIN I < 0.02 ng/mL (0-1.5)
[2019-07-09 03:35] LABS: BILIRUBIN,URINE NEGATIVE (NEGATIVE); BLOOD/HEMOGLOBIN,URINE NEGATIVE (NEGATIVE); GLUCOSE, URINE NEGATIVE (NEGATIVE); KETONES,URINE NEGATIVE (NEGATIVE); LEUKOCYTE ESTERASE ,URINE NEGATIVE (NEGATIVE); NITRITES,URINE NEGATIVE (NEGATIVE); PROTEIN,URINE NEGATIVE (NEGATIVE); UROBILINOGEN,URINE NORMAL (NORMAL)
[2019-07-09 03:37] LABS: APPEARANCE,URINE CLEAR (CLEAR); COLOR,URINE PALE YELLOW (YELLOW)
[2019-07-09 06:14] LABS: BASOPHILS % (AUTO) 0.4 % (0.2-1.0); EOSINOPHILS # (AUTO) 0.3 x10^3/uL (0.0-0.2); EOSINOPHILS % (AUTO) 5.1 % (0.9-2.9); HEMATOCRIT 42.2 % (42.0-54.0); HEMOGLOBIN 14.4 g/dL (13.5-18.0); LYMPHOCYTES # (AUTO) 2.5 X10^3/uL (1.3-2.9); LYMPHOCYTES % (AUTO) 42.2 % (21.0-51.0); MEAN CORPUSCULAR HEMOGLOBIN 32.8 pg (27.0-34.0); MEAN CORPUSCULAR HGB CONC 34.2 g/dL (33.0-35.0); MEAN CORPUSCULAR VOLUME 95.8 fL (80.0-100.0); MEAN PLATELET VOLUME 7.5 fL (7.4-11.0); MONOCYTES # (AUTO) 0.8 x10^3/uL (0.3-0.8); MONOCYTES % (AUTO) 12.7 % (0.0-13.0); NEUTROPHILS # (AUTO) 2.4 x10^3/uL (2.2-4.8); NEUTROPHILS % (AUTO) 39.6 % (42.0-75.0); PLATELET COUNT 170 X10^3/uL (150.0-450.0); RED CELL DISTRIBUTION WIDTH 12.4 % (11.6-16.5)
[2019-07-09 06:22] LABS: BLOOD UREA NITROGEN 12 mg/dL (7-18); CALCIUM 8.8 mg/dL (8.5-10.1); CARBON DIOXIDE 28.5 mmol/L (21-32); CHLORIDE 107 mmol/L (98-107); CHOL/HDL RATIO 2.6 (0.0-5.0); CHOLESTEROL 116 mg/dL (0-200); CREATININE 0.99 mg/dL (0.70-1.30); HDL CHOLESTEROL 44 mg/dL (40-60); MAGNESIUM 1.9 mg/dL (1.7-2.9); SODIUM 140 mmol/L (136-145); TRIGLYCERIDES 60 mg/dL (0-150); eGFR NON BLACK RACES > 60 (>60)
[2019-07-09] MEDS: NORVASC TAB 5 MG PO SCH (08:29)
[2019-07-09] MEDS: ASPIRIN 81 MG CHEWTAB PO SCH (08:29)
[2019-07-09] MEDS ORDERED: FLONASE NASAL SPRAY ENOSTRIL SCH (09:00)
[2019-07-09] MEDS ORDERED: PATIENT'S HOME MEDICATION (Levocetirizine 5 MG) PO SCH (09:00)
[2019-07-09] MEDS ORDERED: LEXAPRO PO SCH (09:00)
[2019-07-09] MEDS ORDERED: AVODART PO SCH (09:00)
[2019-07-09] MEDS ORDERED: BACTROBAN CREAM TOP SCH (09:00)
[2019-07-09 10:30] LABS: CKMB % 1.9 % (<4); CREATINE KINASE 54 Units/L (39-308); CREATINE KINASE MB < 1.0 ng/mL (0-4.0); TROPONIN I < 0.02 ng/mL (0-1.5)
[2019-07-09] MEDS ORDERED: LOVENOX INJ 40 MG SYR SC SCH (11:00)
[2019-07-09 13:50] VITALS: BP 143/67
[2019-07-09] MEDS ORDERED: ZyrTEC TAB 10 MG PO SCH (21:00)
[2019-07-09] MEDS ORDERED: FLOMAX PO SCH (21:00)
== END 2019-07-09 14:30 | disposition home or self-care (01) ==
LOC: ER 06:21 → MED/SURG 06:21
PROVIDERS: ADMIT Internal Medicine; ATTEND Internal Medicine
DX: K21.9 Gastro-esophageal reflux disease without esophagitis; R07.89 Other chest pain; I25.10 Atherosclerotic heart disease of native coronary artery without angina pectoris; R00.1 Bradycardia, unspecified; N40.0 Benign prostatic hyperplasia without lower urinary tract symptoms; E78.5 Hyperlipidemia, unspecified; M54.2 Cervicalgia; I10 Essential (primary) hypertension
CPT/HCPCS: 36415; 71010; 71045; 73030; 80048; 80053; 80061; 81003; 82550; 82553; 83735; 84484; 85025; 85610; 93005; 94760; 96365; 99284; A4216; A4222; G0378; J3490